=== PATIENT | male | born 1960 | race Caucasian/White ===

== ENCOUNTER 2019-07-25 14:39 | Emergency (ER) | payer BC ==
[~2019-07-25] VITALS: Ht 185.4 cm; Wt 111.1 kg
[2019-07-25 15:16] VITALS: BP 161/87
[2019-07-25] MEDS ORDERED: CIPR7.5D LEFT EAR (15:19)
--- NOTE | 2019-07-25 15:20 | PHYS DOC ---
Adult General Chief Complaint Chief Complaint: EARACHE/EAR PAIN HPI HPI Patient is a 58 year old male who presents with 2.5 weeks of left ear hearing loss and earache. Patient denies a recent sickness but states that he thought he had a wax problem have been using the debronx and has been digging in his ear to get out wax. Patient denies pain at this time but states it will start aching off and on. Review of Systems Review of Systems HENT: Denies nasal congestion or sore throat. Left ear pain and hearing loss. [] All other systems were reviewed and found to be within normal limits, except as documented in this note. Physical Exam Physical Exam Constitutional: Well developed, well nourished, no acute distress, non-toxic appearance. [] HENT: Normocephalic, atraumatic, bilateral external ears normal, oropharynx moist, no oral exudates, nose normal. Left ear otitis externa. [] Eyes: PERRLA, EOMI, conjunctiva normal, no discharge. [] Neck: Normal range of motion, no tenderness, supple, no stridor. [] Cardiovascular:Heart rate regular rhythm, no murmur [] Lungs & Thorax: Bilateral breath sounds clear to auscultation [] Skin: Warm, dry, no erythema, no rash. [] Neurologic: Alert and oriented X 3, normal motor function, normal sensory function, no focal deficits noted. [] Psychologic: Affect normal, judgement normal, mood normal. [] EKG EKG [] Radiology/Procedures Radiology/Procedures [] Course & Med Decision Making Course & Med Decision Making Alert and oriented. Afebrile. Speaks in full clear sentences. Patient denies illness, nasal congestion, cough, dizziness, shortness of breath, fever, abdominal pain, nausea, vomiting, diarrhea, chest pain. Patient's left ear canal is swollen and tender. I was unable to see the eardrum due to the swelling. Patient is given Ciprodex and follow-up with a primary care provider. Dragon Disclaimer Dragon Disclaimer This electronic medical record was generated, in whole or in part, using a voice recognition dictation system. Departure Departure Impression: Primary Impression: Otitis externa Disposition: 01 HOME, SELF-CARE Condition: STABLE Referrals: NO PCP (PCP) Patient Instructions: Otitis Externa, [id number] Additional Instructions: Follow up with a primary care provider. Do not stick anything in your ear other than the medication given. Scripts Ciprofloxacin Hcl/Dexameth (CIPRODEX OTIC SUSPENSION) 7.5 Ml Drops.susp 4 DROP LEFT EAR BID, #1 BOTTLE Prov: YEIMI ALEXANDRE MEDICAL ASSISTANT FLOAT 07/25/19 Problem Qualifiers Primary Impression: Otitis externa Otitis externa type: unspecified type Chronicity: acute Laterality: left Qualified Codes: H60.502 - Unspecified acute noninfective otitis externa, left ear YEIMI ALEXANDRE MEDICAL ASSISTANT FLOAT Jul 25, 2019 15:20
== END 2019-07-25 15:47 | disposition home or self-care (01) ==
LOC: ER 14:39
DX: H60.502 Unspecified acute noninfective otitis externa, left ear (principal)
CPT/HCPCS: 99283